=== PATIENT | female | born 1995 | race African-American/Black ===

== ENCOUNTER 2022-02-21 00:42 | Emergency (ER) | payer MEDICAID, OTHER ==
[~2022-02-21] VITALS: Ht 170.2 cm; Wt 100.0 kg
[~2022-02-21 00:42] MED LIST: DIVA250T4 PO; QUET100T PO
[2022-02-21 02:45] VITALS: BP 134/74
[2022-02-21] MEDS ORDERED: CEPH-558 PO (02:53)
== END 2022-02-21 06:42 | disposition home or self-care (01) ==
LOC: EMS 00:44
DX: N39.0 Urinary tract infection, site not specified (principal); Z79.899 Other long term (current) drug therapy
CPT/HCPCS: 99283; Z7502

== ENCOUNTER 2023-12-21 17:39 | Emergency (ER) | payer OTHER ==
[~2023-12-21] VITALS: Ht 175.3 cm; Wt 113.6 kg
[~2023-12-21 17:39] MED LIST changes: +CEPH-558 PO
[2023-12-21 18:00] VITALS: TEMP 98
[2023-12-21 19:09] VITALS: BP 129/73; PULSE 108; RESP 19
[2023-12-21] MEDS ORDERED: ACET-3385 PO (19:33)
[2023-12-21] MEDS ORDERED: IBUP-1492 PO (19:33)
[2023-12-21] MEDS: ACETAMINOPHEN 500 MG TABLET PO ONE (19:40)
[2023-12-21] MEDS: IBUPROFEN 600 MG TABLET PO ONE (19:40)
== END 2023-12-21 20:30 | disposition home or self-care (01) ==
LOC: EMS 17:39
DX: S82.402A Unspecified fracture of shaft of left fibula, initial encounter for closed fracture (principal); F41.9 Anxiety disorder, unspecified; F31.9 Bipolar disorder, unspecified; F20.9 Schizophrenia, unspecified; F15.90 Other stimulant use, unspecified, uncomplicated; W19.XXXA Unspecified fall, initial encounter; Y93.89 Activity, other specified; Y92.89 Other specified places as the place of occurrence of the external cause; Y99.8 Other external cause status
CPT/HCPCS: 29515; 99283

== ENCOUNTER 2024-01-05 22:33 | Emergency (ER) | payer OTHER ==
[~2024-01-05] VITALS: Ht 175.3 cm; Wt 97.7 kg
[~2024-01-05 22:33] MED LIST changes: +ACET-3385 PO; +IBUP-1492 PO
[2024-01-05 22:53] VITALS: BP 125/82; PULSE 100; RESP 18; TEMP 98.3
[2024-01-05 23:19] LABS: BASOPHILS % (AUTO) 0.7 % (0.0-2.0); EOSINOPHILS % (AUTO) 0.9 % (1.0-6.0); HEMOGLOBIN 10.9 g/dL (12.0-16.0); LYMPHOCYTES # (AUTO) 2.4 K/uL (1.0-4.8); LYMPHOCYTES % (AUTO) 47.4 % (22.0-44.0); MEAN CORPUSCULAR HEMOGLOBIN 24.2 pg (26.0-34.0); MEAN CORPUSCULAR VOLUME 76 fL (80-100); MONOCYTES # (AUTO) 0.5 K/uL (0.1-1.0); NEUTROPHILS # (AUTO) 2.1 K/uL (1.8-7.7); PLATELET COUNT (AUTO) 270 K/uL (150-450); RED BLOOD CELL COUNT(AUTO) 4.48 MIL/uL (4.00-5.20); RED CELL DISTRIBUTION WIDTH 17.3 % (11.5-14.5); WHITE BLOOD COUNT (AUTO) 5.1 K/uL (4.5-11.0)
[2024-01-05 23:27] LABS: ANION GAP 12 mmol/L (8-16); CALCIUM, TOTAL 9.3 mg/dL (8.8-10.5); CARBON DIOXIDE 27 mmol/L (22-29); CHLORIDE 104 mmol/L (98-107); CREATININE 0.88 mg/dL (0.60-1.30); GLOMERULAR FILTR. RATE CALC > 60 mL/min (>60); GLUCOSE,RANDOM 101 mg/dL (70-110); POTASSIUM 3.6 mmol/L (3.5-5.1); SODIUM SERUM 142 mmol/L (136-145); UREA NITROGEN, BLOOD 7 mg/dL (7-18)
[2024-01-05 23:31] LABS: ALANINE AMINOTRANSFERASE 25 U/L (12-78); ALBUMIN 3.4 g/dL (3.4-5.0); ALKALINE PHOSPHATASE 82 U/L (46-116); ASPARTATE AMINOTRANSFERASE 23 U/L (15-37); BILIRUBIN,TOTAL 0.4 mg/dL (0.1-1.0); TOTAL PROTEIN, SERUM 9.1 g/dL (6.4-8.2)
[2024-01-05 23:33] LABS: ALCOHOL, BLOOD (SERUM) < 3 mg/dL (0-10)
[2024-01-05 23:57] LABS: COVID AG,FIA SOURCE NASAL SWAB
[2024-01-06 00:28] LABS: SARS-COV2 (COVID) ANTIGEN,FIA Negative (Negative)
== END 2024-01-06 03:30 | disposition home or self-care (01) ==
LOC: EMS 22:35
DX: F15.10 Other stimulant abuse, uncomplicated (principal); F41.9 Anxiety disorder, unspecified; F31.9 Bipolar disorder, unspecified; F20.9 Schizophrenia, unspecified; Z20.822 Contact with and (suspected) exposure to COVID-19
CPT/HCPCS: 99283; 87426; 80053; 84703; 85025; 36415; G0480